=== PATIENT | female | born 1980 | race American Indian/Alaskan Native ===

== ENCOUNTER 2022-01-29 15:12 | Emergency (ER) | payer OTHER ==
[~2022-01-29] VITALS: Ht 170.2 cm; Wt 66.1 kg
[~2022-01-29 15:12] MED LIST: CEPHALEXIN500 MG PO; PREDNISONE20 MG PO; PROVENTIL HFA6.7 GM INH; SPACE CHAMBER1 EACH MC
[2022-01-29] MEDS ORDERED: CEPHALEXIN500 M1 PO (16:58)
== END 2022-01-29 17:00 | disposition home or self-care (01) ==
LOC: ED 15:12
DX: S61.041A Puncture wound with foreign body of right thumb without damage to nail, initial encounter (principal); F17.200 Nicotine dependence, unspecified, uncomplicated; Z91.041 Radiographic dye allergy status; W26.8XXA Contact with other sharp object(s), not elsewhere classified, initial encounter; Y92.096 Garden or yard of other non-institutional residence as the place of occurrence of the external cause; Z23 Encounter for immunization
CPT/HCPCS: 10120; 90471; 90715; 99283-25; A9270